=== PATIENT | male | born 1980 | race African-American/Black ===

== ENCOUNTER 2021-11-15 17:36 | Outpatient (CLI) | payer OTHER, SELFPAY ==
--- NOTE | ~2021-11-15 | CT_ITS ---
EXAMINATION: CT abdomen pelvis w con DATE: 11/15/2021 18:16 INDICATION: Abdominal pain TECHNIQUE: Computed tomography (CT) of the abdomen and pelvis was performed with 100 mL Omnipaque-350 intravenous contrast. Automated exposure control and iterative reconstruction technique were employe d. The dose-length product was 468.88 mGy-cm. COMPARISON: None FINDINGS: Lung bases are clear. Heart size is normal. No pericardial or pleural effusion. 1.3 similar cyst in t he right hepatic lobe. Gallbladder, spleen, pancreas, bilateral adrenal glands and kidneys are normal . Multiple small pieces of relatively high attenuation ingested material throughout the bowels, the m ajority with thin linear configuration measuring up to 5-6 mm in length of indeterminate etiology but with no evident clinical significance with no bowel wall thickening or obstruction. Normal appendix. No free intraperitoneal gas or fluid. No pathologically enlarged abdominal or pelvic lymphadenopathy . Small Schmorl's nodes along the superior endplate of L4 and L5. IMPRESSION: 1. No acute intra-abdominal/pelvic process. Specifically the appendix is normal. Reviewed, dictated and finalized at location A. IMPRESSION: 1. No acute intra-abdominal/pelvic process. Specifically the appendix is normal .
== END 2021-11-15 17:37 | disposition home or self-care (01) ==
PROVIDERS: PCP Internal Medicine; Visit Provider Internal Medicine
DX: R10.9 Unspecified abdominal pain (principal)
CPT/HCPCS: 74177; Q9967

== ENCOUNTER 2022-11-10 00:10 | Day surgery (SDC) | payer OTHER, SELFPAY ==
[2022-11-05 13:32] VITALS: BMI 26.5
--- NOTE | 2022-11-07 15:37 | PM.HPGS ---
History of Present Illness History of Present Illness Consent: Risks, benefits, and alternatives have been discussed and questions answered. Patient agrees to proceed with procedure. Chief complaint: change in bowel habits Narrative: David Peters is a 42 year old male who Has been troubled by pain in the right lower quadrant which is present daily and can radiate towards the back.? He also has had some change in bowel habits in that the discomfort is sometimes affected by having a bowel movement but he does not have juan diarrhea.? He may feel the need to have a bowel movement when it is uncomfortable.? There is no blood in his stools. He also has frequent right lower quadrant discomfort which can radiate towards the back. Review of Systems Review of Systems: All systems reviewed & are unremarkable except as noted in HPI and below PMFSH Past Medical History Medical History Cyst in hand GERD (gastroesophageal reflux disease) History of broken leg Family History Family History Mother Asthma Social History Social History Smoking status: Never smoker Alcohol intake: current Alcohol use details: rarely Substance use: never Substance use type: does not use Living arrangements: with family Spiritual care concerns: No Meds Home Medications and Allergies Home Medications Medication Instructions Recorded Confirmed Type multivitamin 1 tablet PO DAILY 08/22/21 11/10/22 History atorvastatin 40 mg tablet 40 mg PO DAILY 11/05/22 11/10/22 History cholecalciferol (vitamin D3) 25 25 mcg PO DAILY 11/05/22 11/10/22 History mcg (1,000 unit) tablet (Vitamin D3) Allergies Allergy/AdvReac Type Severity Reaction Status Date / Time soy Allergy Unknown Verified 11/10/22 08:26 Exam Const: General: alert Orientation/consciousness: patient oriented x3 Resp: Auscultation: clear to auscultation bilaterally Cardio: Rhythm: regular rhythm GI: GI Palp: Yes Soft to palpation and No Tenderness to palpation present (GI) Neuro: General: patient oriented x3 Assessment and Plan Assessment and plan (1) Change in bowel habits: Code(s): R19.4 - Change in bowel habit Status: Acute Assessment and Plan: Colonoscopy with possible biopsy or polypectomy or cautery or injection of substances.
[2022-11-10 08:27] VITALS: BP 131/78; PULSE 86; RESP 20; TEMP 36.5; O2SAT 100
[2022-11-10] MEDS: LACTATED RINGERS 1,000 ML 150 ML IV CONT (08:29)
--- NOTE | 2022-11-10 08:46 | P.PNAN_ITS ---
Anes - Initial Pre Proc Eval Procedure: Operation Date: 11/10/22 10:00 Proposed Procedures p Colonoscopy - Mando Diaz MD Date/Time: 11/10/22 08:46 Surgeon: Mando Diaz MD Pre Op Diagnosis: change in bowel habits Patient Data Age: 42 Gender: M Height: 1.78 m Weight: 79.5 kg Last Vital Signs Temp 97.7 F 11/10/22 08:27 Pulse 86 11/10/22 08:27 Resp 20 11/10/22 08:27 BP 131/78 11/10/22 08:27 Pulse Ox 100 11/10/22 08:27 O2 Del Method Room Air 11/10/22 08:27 Allergies Allergy/AdvReac Type Severity Reaction Status Date / Time soy Allergy Unknown Verified 11/10/22 08:26 Home Medications Medication Instructions Recorded Confirmed Type multivitamin 1 tablet PO DAILY 08/22/21 11/10/22 History atorvastatin 40 mg tablet 40 mg PO DAILY 11/05/22 11/10/22 History cholecalciferol (vitamin D3) 25 25 mcg PO DAILY 11/05/22 11/10/22 History mcg (1,000 unit) tablet (Vitamin D3) Patient hx anesthesia problems: none Family hx anesthesia problems: none Results Review: All pre-operative results and documents have been reviewed as part of the pre- operative evaluation. [facility] Past Medical History Medical History Cyst in hand GERD (gastroesophageal reflux disease) History of broken leg Family History Family History Mother Asthma Social History Social History Smoking status: Never smoker Alcohol intake: current Alcohol use details: rarely Substance use: never Substance use type: does not use Living arrangements: with family Spiritual care concerns: No Anes - Eval Final PreProcedure Day of Procedure 11/10/22 08:46 Patient weight: normal Heart: regular rate and rhythm Lungs: clear to auscultation Airway: Mallampati scale class II Neurological: alert and oriented Last oral intake: >/= 8 hours ASA classification: II Emergent: no Anesthetic plan: proceed Anesthesia type and monitoring: general GIVS and standard monitoring Results Review: All pre-operative results and documents have been reviewed as part of the pre- operative evaluation. Informed Consent: The patient's anesthetic plan and its attendant risks and benefits were discussed with the patient/family/POA. Questions were solicited and answers provided to the satisfaction of the patient/family/POA.
[2022-11-10] MEDS: SIMETHICONE ORAL SUSPENSION 20 MG/0.3 ML 30 ML BOTTLE 0.6 ML IRRIGATION (09:14)
[2022-11-10 09:23] VITALS: BP 83/55; PULSE 74; RESP 18; O2SAT 100
[2022-11-10 09:33] VITALS: BP 107/68; PULSE 66; RESP 13; O2SAT 100
[2022-11-10 09:43] VITALS: BP 103/68; PULSE 60; RESP 19; O2SAT 100
== END 2022-11-10 09:47 | disposition home or self-care (01) ==
PROVIDERS: PCP Internal Medicine; Visit Provider Internal Medicine Gastroenterology
PROC: 0DJD8ZZ Inspection of Lower Intestinal Tract, Via Natural or Artificial Opening Endoscopic (ICD-10-PCS; CPT 45378; principal; 2022-11-10 10:00)
DX: R19.4 Change in bowel habit (principal); K64.4 Residual hemorrhoidal skin tags; K64.8 Other hemorrhoids; R10.31 Right lower quadrant pain
CPT/HCPCS: 45378; J2704; J7120

== ENCOUNTER 2022-12-18 09:54 | Outpatient (CLI) | payer OTHER, SELFPAY ==
--- NOTE | ~2022-12-18 | CT_ITS ---
EXAMINATION: CT abdomen pelvis w con INDICATION: Right-sided abdominal pain TECHNIQUE: Computed tomographic images of the abdomen and pelvis were obtained after the administrati on of 100 cc of Omnipaque 350 intravenous contrast. The dose-length product (DLP) was 457.53 mGy-cm. Automated exposure control and iterative reconstruction technique were employed. COMPARISON: 11/15/2021 FINDINGS: Minimal dependent atelectasis is present in the lung bases. The heart size is normal. There is a 1.3 cm cyst of the right hepatic lobe. The spleen, pancreas, gallbladder, and adrenal glands ar e normal. The kidneys are unremarkable. No pathologically enlarged abdominal or pelvic lymph nodes ar e identified. The appendix is normal. No free intraperitoneal gas or evidence of bowel obstruction. A moderate volume of colonic stool is present. IMPRESSION: 1. No CT correlate for the patient's symptoms. Reviewed, dictated and finalized at location L.
== END 2022-12-18 09:55 | disposition home or self-care (01) ==
PROVIDERS: PCP Internal Medicine; Visit Provider Internal Medicine
DX: R10.9 Unspecified abdominal pain (principal)
CPT/HCPCS: 74177; Q9967

== ENCOUNTER → 2023-02-13 09:59 | Outpatient (CLI) | payer OTHER, SELFPAY ==
--- NOTE | ~2023-02-13 | US_ITS ---
US abdomen limited DATE: 02/13/2023 10:12 INDICATION: Splenomegaly TECHNIQUE: Real-time imaging of the spleen COMPARISON: 12/18/2022 CT abdomen pelvis FINDINGS: The spleen is normal in size measuring approximately 8 cm maximal dimension. Normal left kidney. IMPRESSION: No splenomegaly Reviewed, dictated and finalized at Location A. Reviewed, dictated and finalized at location B. IMPRESSION: No splenomegaly
== END ==
PROVIDERS: PCP Internal Medicine Medical Oncology; Visit Provider Internal Medicine Medical Oncology
DX: R16.1 Splenomegaly, not elsewhere classified (principal)
CPT/HCPCS: 76705

== ENCOUNTER 2024-07-25 10:43 | Outpatient (CLI) | payer OTHER, SELFPAY ==
--- NOTE | ~2024-07-25 | XR_ITS ---
CHEST RADIOGRAPH, PA AND LATERAL CLINICAL HISTORY: Cough, unspecified . COMPARISON: None available TECHNIQUE: PA and lateral views of the chest. FINDINGS The cardiomediastinal silhouette is unremarkable. The lungs are clear. Visualized osseous structures and soft tissues are unremarkable. IMPRESSION: No focal infiltrate or effusion. Reviewed, dictated and finalized at location A.
== END 2024-07-25 10:44 | disposition home or self-care (01) ==
LOC: MICIMG 10:46
PROVIDERS: PCP Internal Medicine; Visit Provider Internal Medicine
DX: R05.9 Cough, unspecified (principal)
CPT/HCPCS: 71046